=== PATIENT | female | born 1945 | race Two or more races ===

== ENCOUNTER 2022-12-24 18:00 | Inpatient (IN) | payer MEDICARE, OTHER ==
[~2022-12-24] VITALS: Ht 170.2 cm; Wt 88.5 kg
[2022-12-24] MEDS ORDERED: ONDANSETRON HCL 4MG/2ML INJ IV STA (18:35)
[2022-12-24] MEDS ORDERED: MORPHINE SULFATE 4 MG/ML CPJ (NOT FOR IM USE) IV STA (18:35)
[2022-12-24] MEDS ORDERED: SODIUM CHLORIDE 0.9% 1,000 ML IV ONE (18:45)
[2022-12-24 18:56] LABS: HEMATOCRIT. 43.7 % (36.0-48.0); HEMOGLOBIN. 14.6 g/dL (12.0-16.0); MEAN CORPUSCULAR HEMOGLOBIN 30.5 pg (28.0-32.0); MEAN CORPUSCULAR VOLUME 91.4 fL (81.0-99.0); MEAN PLATELET VOLUME 7.2 fl (7.4-10.4); PLATELET 268 x1000/uL (130-400); RED BLOOD CELL COUNT 4.79 mill/uL (4.2-5.4); RED CELL DISTRIBUTION WIDTH 13.7 % (11.6-14.6)
[2022-12-24 19:03] LABS: CHLORIDE 108 mEq/L (98-107); PROTHROMBIN TIME 10.7 sec (9.6-11.0)
[2022-12-24 19:11] LABS: PLATELET ESTIMATE NORMAL
[2022-12-24] MEDS ORDERED: ASPIRIN 325MG EC TABLET PO ONE (19:30)
[2022-12-24 19:33] LABS: CLARITY URINE CLEAR (CLEAR); COLOR URINE YELLOW (YELLOW); KETONES URINE 4+ (NEGATIVE); LEUKOCYTE ESTERASE URINE NEGATIVE (NEGATIVE); NITRITE URINE NEGATIVE (NEGATIVE); OCCULT BLOOD URINE NEGATIVE (NEGATIVE); PH URINE 5.5 (4.5-8.0); PROTEIN URINE TRACE (NEGATIVE); SPECIFIC GRAVITY URINE 1.027 (1.005-1.030); UROBILINOGEN URINE 0.2 E.U./dL (0.2-1.0)
[2022-12-24] MEDS ORDERED: CLONIDINE 0.1MG TABLET PO PRN (22:45)
[2022-12-24] MEDS ORDERED: GUAIFENESIN 200MG/10ML SUGAR FREE UDC PO PRN (22:45)
[2022-12-24] MEDS ORDERED: MAGNESIUM/ALUMINUM HYDROXIDE/SIMETHICONE 30ML UDC PO PRN (22:45)
[2022-12-24] MEDS ORDERED: DOCUSATE SODIUM 100MG CAPSULE PO PRN (22:45)
[2022-12-24] MEDS ORDERED: ONDANSETRON HCL 4MG/2ML INJ IV PRN (22:45)
[2022-12-24] MEDS ORDERED: ACETAMINOPHEN 325MG TABLET PO PRN ×2 (22:45)
[2022-12-24] MEDS ORDERED: IPRATROPIUM/ALBUTEROL 0.5-3(2.5)MG/3ML NEB HHN PRN (22:45)
[2022-12-24] MEDS ORDERED: ALBUTEROL (0.083%) 2.5MG/3ML NEB HHN PRN (23:00)
[2022-12-24] MEDS ORDERED: IPRATROPIUM BROMIDE (0.02%) 0.5MG/2.5ML NEB HHN PRN (23:00)
[2022-12-25 01:48] LABS: CREATINE KINASE MB FRACTION 2.1 ng/mL (0.5-3.6)
[2022-12-25 05:55] LABS: BASOPHILS % 0.2 % (0.0-2.0); EOSINOPHILS % 0.3 % (0.0-5.0); HEMATOCRIT. 37.5 % (36.0-48.0); HEMOGLOBIN. 12.5 g/dL (12.0-16.0); MEAN CORPUSCULAR HEMOGLOBIN 30.3 pg (28.0-32.0); MEAN CORPUSCULAR VOLUME 91.1 fL (81.0-99.0); MONOCYTES % 8.8 % (2.0-8.0); NEUTROPHILS % 74.7 % (40.0-76.0); PLATELET 208 x1000/uL (130-400); RED BLOOD CELL COUNT 4.11 mill/uL (4.2-5.4); RED CELL DISTRIBUTION WIDTH 13.4 % (11.6-14.6)
[2022-12-25 06:00] LABS: CHLORIDE 110 mEq/L (98-107)
[2022-12-25 06:23] LABS: CREATINE KINASE 39 IU/L (26-192); CREATINE KINASE MB FRACTION 1.9 ng/mL (0.5-3.6); HDL CHOLESTEROL 49 mg/dL (40-59); LDL CHOLESTEROL 159 mg/dL (5-100); T4 FREE 0.79 ng/dL (0.76-1.46)
[2022-12-25 10:00] VITALS: BP 123/54
[2022-12-25] MEDS ORDERED: IOHEXOL-350 100 ML BOTTLE ONE (10:34)
[2022-12-25] MEDS: ASPIRIN 81MG TABLET PO SCH (10:49)
[2022-12-25] MEDS: FAMOTIDINE 20MG/2ML VIAL IV SCH ×2 (10:49→21:49)
[2022-12-25] MEDS: ENOXAPARIN 40MG/0.4ML SYR SUBCUT SCH (10:50)
[2022-12-25] MEDS ORDERED: NITROGLYCERIN 0.4MG TABLET SL SL ONE (11:30)
[2022-12-25 12:28] VITALS: BP 148/58
[2022-12-25 13:57] LABS: T4 FREE 0.81 ng/dL (0.76-1.46)
[2022-12-25] MEDS ORDERED: DEXT 5%/0.45% NACL 1000ML 1,000 ML IV SCH (16:00)
[2022-12-25] MEDS ORDERED: NALOXONE HCL 0.4MG/ML VIAL IV PRN (16:00)
[2022-12-25 16:08] VITALS: BP 162/65
[2022-12-25] MEDS: HYDROCODONE/ACETAMINOPHEN 5/325MG TABLET PO PRN (16:24)
[2022-12-25] MEDS ORDERED: TIMO1DRO2 EACHEYE (17:25)
[2022-12-25] MEDS ORDERED: XALAO EACHEYE (17:25)
[2022-12-25 20:00] VITALS: BP 137/59
[2022-12-25] MEDS: ATORVASTATIN CALCIUM 40MG TABLET PO SCH (21:49)
[2022-12-26] VITALS: BP 133/63
[2022-12-26 04:00] VITALS: BP 158/89
[2022-12-26 08:00] VITALS: BP 134/50
[2022-12-26] MEDS: ASPIRIN 81MG TABLET PO SCH (09:08)
[2022-12-26] MEDS: FAMOTIDINE 20MG/2ML VIAL IV SCH ×2 (09:09→20:53)
[2022-12-26] MEDS: ENOXAPARIN 40MG/0.4ML SYR SUBCUT SCH (09:09)
[2022-12-26 12:00] VITALS: BP 136/52
[2022-12-26 13:18] LABS: HEMATOCRIT 39.1 % (36.0-48.0); HEMOGLOBIN 13.2 g/dL (12.0-16.0); MEAN CORPUSCULAR HEMOGLOBIN 30.9 pg (28.0-32.0); MEAN CORPUSCULAR VOLUME 91.5 fL (81.0-99.0); PLATELET 215 x1000/uL (130-400); RED BLOOD CELL COUNT 4.28 mill/uL (4.2-5.4); RED CELL DISTRIBUTION WIDTH 13.5 % (11.6-14.6)
[2022-12-26 13:23] LABS: CHLORIDE 108 mEq/L (98-107)
[2022-12-26 13:31] LABS: PHOSPHORUS 2.2 mg/dL (2.5-4.9)
[2022-12-26] MEDS: HYDROCODONE/ACETAMINOPHEN 5/325MG TABLET PO PRN (15:26)
[2022-12-26 16:00] VITALS: BP 145/64
[2022-12-26 20:00] VITALS: BP 127/74
[2022-12-26] MEDS: ATORVASTATIN CALCIUM 40MG TABLET PO SCH (20:53)
[2022-12-26] MEDS: TIMOLOL MALEATE 0.5% OPHTH DROPS 5ML EACHEYE SCH (22:23)
[2022-12-26] MEDS: LATANOPROST 0.005% OPHTH DROPS 2.5ML BOTHEYE SCH (22:23)
[2022-12-27] VITALS: BP 135/50
[2022-12-27 04:00] VITALS: BP 138/69
[2022-12-27] MEDS: HYDROCODONE/ACETAMINOPHEN 5/325MG TABLET PO PRN (07:21)
[2022-12-27 07:56] VITALS: BP 125/68
[2022-12-27] MEDS: TIMOLOL MALEATE 0.5% OPHTH DROPS 5ML EACHEYE SCH ×2 (08:18→21:23)
[2022-12-27] MEDS: ASPIRIN 81MG TABLET PO SCH (08:18)
[2022-12-27] MEDS: FAMOTIDINE 20MG/2ML VIAL IV SCH ×2 (08:18→21:22)
[2022-12-27] MEDS: ENOXAPARIN 40MG/0.4ML SYR SUBCUT SCH (08:19)
[2022-12-27 12:00] VITALS: BP 120/66
[2022-12-27 16:00] VITALS: BP 122/59
[2022-12-27 20:00] VITALS: BP 109/68
[2022-12-27] MEDS: ATORVASTATIN CALCIUM 40MG TABLET PO SCH (21:22)
[2022-12-27] MEDS: LATANOPROST 0.005% OPHTH DROPS 2.5ML BOTHEYE SCH (21:23)
[2022-12-28] VITALS: BP 133/42
[2022-12-28 00:30] VITALS: BP 128/56
[2022-12-28 04:00] VITALS: BP 132/58
[2022-12-28 08:00] VITALS: BP 158/72
[2022-12-28] MEDS ORDERED: HEPARIN 1000 UNITS/ML 10ML ONE (08:53)
[2022-12-28] MEDS ORDERED: IODIXANOL 320MG/ML 100 ML BOTTLE IV ONE (08:53)
[2022-12-28] MEDS ORDERED: LIDOCAINE HCL/PF 1% 10 MG/ML 5ML VIAL ONE (08:54)
[2022-12-28] MEDS: FAMOTIDINE 20MG/2ML VIAL IV SCH (08:54)
[2022-12-28] MEDS: TIMOLOL MALEATE 0.5% OPHTH DROPS 5ML EACHEYE SCH (08:54)
[2022-12-28] MEDS: ASPIRIN 81MG TABLET PO SCH (08:55)
[2022-12-28] MEDS: ENOXAPARIN 40MG/0.4ML SYR SUBCUT SCH (08:55)
[2022-12-28] MEDS ORDERED: FENTANYL CITRATE/PF 50MCG/ML 2ML VIAL ONE (09:05)
[2022-12-28] MEDS ORDERED: MIDAZOLAM HCL 2 MG/2 ML VIAL ONE (09:06)
[2022-12-28] MEDS ORDERED: DIPHENHYDRAMINE 50MG/ML VIAL ONE (09:09)
[2022-12-28] MEDS ORDERED: VERAPAMIL HCL 2.5 MG/1 ML 2ML VIAL IV ONE (09:09)
[2022-12-28] MEDS ORDERED: ATROPINE SULFATE 1MG/10ML SYR IV PRN (10:15)
[2022-12-28] MEDS ORDERED: PROT40 MT (15:15)
[2022-12-28] MEDS ORDERED: ASPI-1497 MT (15:15)
[2022-12-28 15:47] VITALS: BP 127/63
[2022-12-29] MEDS ORDERED: FAMOTIDINE 20MG TABLET PO SCH (09:00)
== END 2022-12-28 17:00 | disposition home or self-care (01) | DRG 438 ==
LOC: ER 18:36 → MICUSO 20:27 → EDBEDREQTM 20:40 → EDBEDREQ 20:40 → 7EST 12-25 09:29
PROVIDERS: ADMIT Internal Medicine; ATTEND Internal Medicine
PROC: 4A023N7 Measurement of Cardiac Sampling and Pressure, Left Heart, Percutaneous Approach (ICD-10-PCS; principal; 2022-12-28)
PROC: B211YZZ Fluoroscopy of Multiple Coronary Arteries using Other Contrast (ICD-10-PCS; 2022-12-28)
DX: K86.2 Cyst of pancreas (principal); I21.A1 Myocardial infarction type 2; R18.8 Other ascites; D72.810 Lymphocytopenia; D72.818 Other decreased white blood cell count; E04.2 Nontoxic multinodular goiter; E78.00 Pure hypercholesterolemia, unspecified; K57.90 Diverticulosis of intestine, part unspecified, without perforation or abscess without bleeding; K76.0 Fatty (change of) liver, not elsewhere classified; I25.10 Atherosclerotic heart disease of native coronary artery without angina pectoris; F45.21 Hypochondriasis; I49.1 Atrial premature depolarization; I10 Essential (primary) hypertension; Z20.822 Contact with and (suspected) exposure to COVID-19
CPT/HCPCS: 36415; 71045; 74177; 75571; 76536; 76700; 80053; 80061; 81003; 82550; 82553; 83036; 83605; 83735; 83880; 84100; 84439; 84443; 84481; 84484; 85025; 85027; 85379; 93005; 93306; 93458; 93970; 99291; C1769; C1887; C1893; J1200; J1644; J1650; J2250; J2270; J2405; J3010; J3490; J7030; Q9967